=== PATIENT | female | born 1945 | race Caucasian/White ===

== ENCOUNTER 2019-05-14 12:06 | Emergency (ER) | payer MEDICARE, OTHER ==
--- OUTSIDE RECORDS SUMMARY | 2019-05-14 12:13 | XMS REPORT | Continuity of Care Document ---
:1945 External Reference #:[id number] Author Name Salima Meraz M.D. Address [address] [place] [address] Care Team Providers Name Role Phone [facility] Care - Diagnostic Care Team Information [facility] Getachew Latif - Surgery Care Team Information [facility] [phone] Haresh Leach MD - Orthopaedic Care Team Information [facility] Surgery Jason Manjarrez MD - Family Care Team Information [facility] Medicine Problems Active Problems Provider Date Benign essential hypertension Orestes Mei M.D. Onset: 01/26/2007 Peptic ulcer without hemorrhage, without Orestes Mei M.D. Onset: 2007 perforation AND without obstruction Type 2 diabetes mellitus Orestes Mei M.D. Onset: 09/27/2007 Allergic asthma without status asthmaticus Orestes Mei M.D. Onset: 2007 Hyperlipidemia Orestes Mei M.D. Onset: 02/19/2010 Coronary arteriosclerosis Orestes Mei M.D. Onset: 02/19/2010 Irritable bowel syndrome Orestes Mei M.D. Onset: 02/19/2010 Malaise and fatigue Orestes Mei M.D. Onset: 07/29/2011 Hypothyroidism Orestes Mei M.D. Onset: 2011 Acute upper respiratory infection Orestes Mei M.D. Onset: 2011 Idiopathic peripheral neuropathy Orestes Mei M.D. Onset: 05/18/2012 Acute allergic serous otitis media Orestes Mei M.D. Onset: 05/18/2012 Colitis, enteritis and gastroenteritis Orestes Mei M.D. Onset: 12/06/2013 presumed infectious Left lower quadrant pain Orestes Mei M.D. Onset: 12/27/2013 Low back pain Orestes Mei M.D. Onset: 02/07/2014 Cataract Jason Manjarrez M.D. Onset: 08/20/2014 Dizziness and giddiness Jason Manjarrez M.D. Onset: 12/17/2014 Essential hypertension Orestes Mei M.D. Onset: 08/21/2015 Sinus node dysfunction Jason Manjarrez M.D. Onset: 11/25/2015 Social History Type Date Description Comments Sex Unknown Tobacco Use Start: Unknown Nonsmoker Tobacco Use Start: Unknown Patient has never smoked Smoking Status Reviewed: 10/03/18 Patient has never smoked Allergies, Adverse Reactions, Alerts Active Allergies Reaction Severity Comments Date Sulfa Drugs 09/15/2000 Scallops 01/07/2009 Eggs RASH ITCHY 05/23/2009 Contrast Dye 01/16/2019 Medications Active Medications SIG Qnty Indications Ordering Provider Date Augmentin 1 by mouth 20tabs J20.9 Salima L. 03/23/2019 500-125mg twice daily x Gina Meraz Tablets 10 days. Ashu Dunlap take 1 capsule 60caps J20.9 Salima L. 03/23/2019 100mg by mouth two Gina Meraz Capsules times daily as needed for cough Acetaminophen-Codeine 1-2 by mouth at 20tabs J20.9 Salima Stone 03/23/2019 #3 at bedtime for Gina Meraz 300-30mg Tablets cough Permethrin Use On Body 60gm Jason Fisher 01/16/2019 5% Cream For 8-10 Gina Manjarrez Hours Wash Off Repeat In 3 Days Metformin HCL take two 120tabs LORIE Stroud 10/22/2018 500mg tablets by Tablets mouth two times a day Furosemide take 1 tablet 90tabs Jason Fisher 10/22/2018 40mg Tablets by mouth every Gnia Manjarrez day Glyburide take 1 tablet 45tabs Tiffanie Olsen 10/03/2018 5mg Tablets by mouth every Pereira, CHISEL TRIMMER other day Famotidine take 1 tablet 180tabs Jason Fisher 09/13/2018 20mg Tablets by mouth twice Gina Manjarrez a day Nystatin apply to 60gm B37.9 Tiffanie Pretty 09/12/2018 [id number]/GM affected area Pereira, CHISEL TRIMMER Powder twice a day - under breast and panis Metoprolol Tartrate take one-half 135tabs José Luis Chris, 08/26/2018 50mg tablet by mouth M.DAugustine Tablets in the morning and 1 tablet every night at bedtime Diltiazem HCL ER Take 1 Capsule 90caps Jason Fisher 08/26/2018 Coated Beads By Mouth Every Gina Manjarrez 120mg Caps Day ER 24HR Onetouch Verio test blood 100units Jason Lemus 03/24/2018 Strips sugar twice MD Enio daily dx: e11.65 last seen 12/06/17 Onetouch Lancets test bs once a 100units Jason Fisher 05/28/2015 [facility] day Dx: E11.9 Gina Manjarrez Tramadol HCL 1 qid prn pain 30tabs [facility] 08/30/2013 50mg Tablets [facility] Lotrisone apply to 60units Jason Fisher 08/13/2013 1-0.05% Cream affected area Gina Manjarrez two times a day to three times a day Levothyroxine Sodium take 1 tablet 90tabs Jason Fisher 02/11/2012 by mouth every Gina Manjarrez 75mcg Tablets day Lomotil 1-2 by mouth 100tabs Jason Fisher 01/21/2011 2.5-0.025mg four times a Gina Manjarrez Tablets day as needed Aspirin 1 po qd 90tabs Orestes Mei, 01/07/2009 81mg Tablets M.DAugustine Theophylline ER take 1 tablet 90tabs José Luis Chris, 07/08/2008 400mg by mouth daily M.DAugustine Tablets ER 24HR Hyoscyamine Sulfate use three times 90tabs Orestes Mei, 10/21/2006 a day M.DAugustine 0.125mg Tablets Klor-Con 10 take 1 tablet 180tabs Jason Fisher 01/18/2005 10Meq Tablets by mouth twice Gina Manjarrez ER a day Zoloft take 1 tablet 90tabs Jason Fisher 08/28/2001 50mg Tablets by mouth every Gina Manjarrez day Eliquis Take 1 Tablet 180tabs Jason Fisher 5mg Tablets By Mouth Twice Gina Manjarrez A Day Levocetirizine take 1 tablet 90tabs Marybeth Maldonado Dihydrochloride by mouth every KIKA Avelar 5mg day Tablets Trospium Chloride 1 by mouth Unknown 20mg every day Tablets Ketoconazole apply thin Unknown 2% Cream layer twice a day to affected area. Atorvastatin Calcium take 1 tablet 90tabs Jason Manjarrez 40mg by mouth every MD Donny Tablets day History Medications Amoxicillin/Clavulanate take one tab 20tabs J01.90 Ramona Andrews, 2018 - Potassium by mouth twice RN CVOR 03/23/2019 875-125mg Tablets a day x 10 days with food Diflucan one tablet my 2tabs B37.9 Tiffanie Pretty 10/03/2018 - 200mg Tablets mouth once, if KIKA Pereira 01/16/2019 not improved repeat in 2 days. Immunizations CPT Code Status Date Vaccine Lot # [id number] Given 10/12/2016 Pneumococcal Conjugate Vacc-13 [id number] Vital Signs Date Vital Result Comment 03/23/2019 1:25pm BP Systolic 120 mmHg BP Diastolic 64 mmHg Heart Rate 80 /min Body Temperature 97.3 F Respiratory Rate 16 /min Height 60 inches 5'0" Weight 206.00 lb BMI (Body Mass Index) 40.2 kg/m2 03/08/2019 2:28pm BP Systolic 130 mmHg BP Diastolic 78 mmHg Heart Rate 86 /min Body Temperature 97.8 F Respiratory Rate 20 /min O2 % BldC Oximetry 94 % Ra Weight 204.00 lb Results Test Date Facility Test Result H/L Range Note Laboratory test 03/23/2019 [facility] Hemoglobin A1c 6.8 finding (607)- - Procedures Date Code Description Status 03/01/2017 [id number] Mammogram Completed 02/28/2017 [id number] Mammogram Completed 11/19/2016 [id number] Colonoscopy Completed 06/28/2014 [id number] Colonoscopy Completed 02/20/2009 [id number] Colonoscopy Completed 07/13/2007 [id number] Mammogram Completed 10/13/2000 [id number] Bone Mineral Density Test Completed Medical Devices Description No Information Available Encounters Type Date Location Provider Dx Diagnosis Office Visit 03/08/2019 [facility] Office Ramona Darryl, J01.90 Acute sinusitis, 2:30p RN CVOR unspecified Office Visit 01/16/2019 [facility] Jason Fisher M67.432 Ganglion, left 9:20a Gina Manjarrez wrist M65.342 Trigger finger, left ring finger M79.642 Pain in left hand E11.9 Type 2 diabetes mellitus without complications R21 Rash and other nonspecific skin eruption E03.9 Hypothyroidism, unspecified I49.5 Sick sinus syndrome I48.91 Unspecified atrial fibrillation Z01.818 Encounter for other preprocedural examination Office Visit 10/03/2018 1:30p [facility] Tiffanie Olsen E11.9 Type 2 diabetes Pereira, CHISEL TRIMMER mellitus without complications B37.9 Candidiasis, unspecified L82.1 Other seborrheic keratosis Assessments Date Code Description Provider 03/23/2019 E11.9 Type 2 diabetes mellitus without Salima Meraz M.D. complications 03/23/2019 J20.9 Acute bronchitis, unspecified Salima Meraz M.D. 03/08/2019 J01.90 Acute sinusitis, unspecified Ramona Fernandesrer, RN CVOR 01/16/2019 M67.432 Ganglion, left wrist Jason Manjarrez M.D. 01/16/2019 M65.342 Trigger finger, left ring finger Jason Manjarrez M.D. 01/16/2019 M79.642 Pain in left hand Jason Manjarrez M.D. 01/16/2019 E11.9 Type 2 diabetes mellitus without Jason Manjarrez M.D. complications 01/16/2019 R21 Rash and other nonspecific skin eruption Jason Manjarrez M.D. 01/16/2019 E03.9 Hypothyroidism, unspecified Jason Manjarrez M.D. 01/16/2019 I49.5 Sick sinus syndrome Jason Manjarrez M.D. 01/16/2019 I48.91 Unspecified atrial fibrillation Jason Manjarrez M.D. 01/16/2019 Z01.818 Encounter for other preprocedural Jason Manjarrez M.D. examination 10/03/2018 E11.9 Type 2 diabetes mellitus without Tiffanie Pereira, KIKA complications 10/03/2018 B37.9 Candidiasis, unspecified Tiffanie Pereira, KIKA 10/03/2018 L82.1 Other seborrheic keratosis Tiffanie Pereira NP Plan of Treatment 03/23/2019 - Salima Meraz M.D.E11.9 Type 2 diabetes mellitus without complicationsComments:hemoglobin A1c= 6.8J20.9 Acute bronchitis, unspecifiedNew Medication:Augmentin 500-125 mg - 1 by mouth twice daily x 10 days.Tessalon Perles 100 mg - take 1 capsule by mouth two times daily as needed for coughAcetaminophen-Codeine #3 300-30 mg - 1-2 by mouth at at bedtime for coughAllComments:Medication Management Patient Understands medications she's taking? Yes No Are there Barriers to Adherence? Yes No Has the patient been asked about herbal supplements and therapies, and OTC meds? Yes No Care Plan1. Patient has been queried about patient's goals/ preferences and functional/lifestyle goals at relevant visits. If relevant, describe: na2. Treatment goals asexplained to the patient: above3. Are there barriers to meeting treatment goals? Yes No IfYes, please describe:4. Self-Management goals as described to the patient: Yes No as above. Functional Status Description No Information Available Mental Status Description No Information Available Referrals Refer to Reason for Referral Status Appt Date Belem Abbott MD consult and treat jw Scheduled 10/04/2018 [facility] [place], [place] [address] [phone]
[2019-05-14 12:43] VITALS: BP 142/63
--- NOTE | 2019-05-14 12:58 | UC ---
Skin Complaint HPI - HPI Summary HPI Summary: " Ms. Sousa was standing in the forehead by a yellow jacket last evening. She had some swelling in her forehead area and took some Benadryl before sleeping. When she woke up the swelling was worse and her eyes were involved. It's making it difficult for her to walk around. It's very itchy is not particularly painful. Couple weeks ago she was stung on the left ear and that swelled up and was itchy for several days. - History of Current Complaint Chief Complaint: UCAllergicReaction Time Seen by Provider: 05/14/19 12:38 Stated Complaint: BEE STING SWOLLEN EYE Hx Obtained From: Patient ?: Yes Onset/Duration: Gradual Onset Skin Exposure Onset/Duration: Hours Ago Timing: Constant Onset Severity: Mild Current Severity: Moderate Pain Intensity: 6 Location: Face - Forehead and periorbital Aggravating Factor(s): Nothing Alleviating Factor(s): Nothing Associated Signs & Symptoms: Positive: Negative - Allergy/Home Medications Allergies/Adverse Reactions: Allergies Allergy/AdvReac Type Severity Reaction Status Date / Time Egg Derived Allergy Rash And Verified 05/14/19 12:43 Itching Sulfa (Sulfonamide Allergy Unknown Verified 05/14/19 12:43 Antibiotics) Reaction Details metal Allergy Rash Uncoded 05/14/19 12:43 SCALLOPS Allergy Nausea And Uncoded 05/14/19 12:43 Vomiting Home Medications: Home Medications Ketoconazole 2 % CREAM (NF) [Nizoral 2% CREAM (NF)] 1 applic TOPICAL DAILY 05/14 [History Confirmed 05/14/19] Trospium Chloride [Trospium Chloride ER] 20 mg PO DAILY 05/14/19 [History Confirmed 05/14/19] PMH/Surg Hx/FS Hx/Imm Hx Endocrine History: Diabetes - Surgical History Surgical History: Yes Surgery Procedure, Year, and Place: Colon resection 1997, Cholecystectomy, Partial Hysterectomy, Bilat carpal tunnel, bilat Shoulder-Rotator cuff, Hand ligaments. Lipoma removed upper back, T & A,Ublilical Hernia, trigger finger repair, cataracts, - Family History Known Family History: Positive: Cardiac Disease - Mother, Father, Hypertension - Mother, Brother, Diabetes - Mother, Brother - Social History Alcohol Use: None Substance Use Type: None Smoking Status (MU): Former Smoker - Immunization History Most Recent Influenza Vaccination: pt allergic Most Recent Tetanus Shot: unknown Most Recent Pneumonia Vaccination: unknown Review of Systems All Other Systems Reviewed And Are Negative: Yes Constitutional: Positive: Negative Skin: Positive: Other - Swelling Eyes: Positive: Other - Swelling ENT: Positive: Negative Respiratory: Positive: Negative Physical Exam - Summary Physical Exam Summary: She is nontoxic in appearance with stable vital signs. Triage Information Reviewed: Yes Appearance: Well-Appearing Vital Signs: Initial Vital Signs Temp 97 F 05/14/19 12:37 Pulse 74 05/14/19 12:37 Resp 18 05/14/19 12:37 BP 142/63 05/14/19 12:37 Pulse Ox 97 05/14/19 12:37 Vital Signs Reviewed: Yes Eye Exam: Other - Difficult to see her left eye as her legs are so swollen. Eyes: Positive: Conjunctiva Clear - On the right ENT Exam: Other - She has a small sting on her forehead. There is no foreign body. She has mild swelling of the forehead but quite a bit of swelling in her bilateral periorbital areas and tarsae especially on the left Neck exam: Normal Respiratory Exam: Normal Course/Dx - Course Course Of Treatment: Although this is still a local reaction, it's very significantly impinging on her ability to take care of herself. I recommend she continue the Benadryl but I'm also going to give her couple days of prednisone. We discussed the possibility of her blood sugar going up and she is going to do fingersticks every day which is not her typical habit. - Diagnoses Provider Diagnosis: Bee sting reaction Discharge ED - Sign-Out/Discharge Documenting (check all that apply): Patient Departure All imaging exams completed and their final reports reviewed: No Studies - Discharge Plan Condition: Stable Disposition: HOME Patient Education Materials: Insect Bite or Sting (ED) Referrals: Jason Manjarrez MD [Primary Care Provider] - - Billing Disposition and Condition Condition: STABLE Disposition: Home
== END 2019-05-14 13:12 | disposition home or self-care (01) ==
LOC: UCEAST 12:06
DX: S00.86XA Insect bite (nonvenomous) of other part of head, initial encounter (principal); E11.9 Type 2 diabetes mellitus without complications; Z91.012 Allergy to eggs; Z88.2 Allergy status to sulfonamides; Z91.09 Other allergy status, other than to drugs and biological substances; Z87.891 Personal history of nicotine dependence; W57.XXXA Bitten or stung by nonvenomous insect and other nonvenomous arthropods, initial encounter; Y92.9 Unspecified place or not applicable
CPT/HCPCS: 99212; G0463